=== PATIENT | female | born 1995 | race Caucasian/White ===

== ENCOUNTER → 2023-06-30 08:32 | Outpatient (BNVA) | payer OTHER, SELFPAY | PROVIDERS: PCP Physician Assistant Medical; Visit Provider Physician Assistant Surgical ==

== ENCOUNTER → 2023-07-15 13:58 | Outpatient (BNVA) | payer OTHER, SELFPAY | PROVIDERS: PCP Physician Assistant Medical; Visit Provider Physician Assistant Medical | DX: S80.01XA Contusion of right knee, initial encounter (principal); S80.211A Abrasion, right knee, initial encounter; S83.91XA Sprain of unspecified site of right knee, initial encounter; W01.0XXA Fall on same level from slipping, tripping and stumbling without subsequent striking against object, initial encounter | CPT/HCPCS: 99203 ==

== ENCOUNTER → 2023-07-19 11:09 | Outpatient (BNVA) | payer OTHER, SELFPAY | PROVIDERS: PCP Physician Assistant Medical; Visit Provider Physician Assistant Medical | DX: S80.01XA Contusion of right knee, initial encounter (principal); S80.211A Abrasion, right knee, initial encounter; S83.91XA Sprain of unspecified site of right knee, initial encounter; X50.1XXA Overexertion from prolonged static or awkward postures, initial encounter | CPT/HCPCS: 99213 ==

== ENCOUNTER → 2023-08-03 09:48 | Outpatient (BNVA) | payer OTHER, SELFPAY | PROVIDERS: PCP Physician Assistant Medical; Visit Provider Physician Assistant Medical | DX: S80.01XA Contusion of right knee, initial encounter (principal); W01.0XXD Fall on same level from slipping, tripping and stumbling without subsequent striking against object, subsequent encounter | CPT/HCPCS: 99213 ==

== ENCOUNTER 2023-08-09 14:44 | Outpatient (AMB) | payer OTHER, SELFPAY ==
--- NOTE | 2023-08-09 13:04 | MHC.OFFVISWM ---
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 She heard about the program from her PCP. Her goal is to lose weight and achieve a healthy lifestyle as well as to improve possible sleep apnea. She was referred to sleep medicine by her PCP office in June and has not yet heard. She has headaches in the morning and she has been told she snores. She has daytime fatigue and sleepiness. She reports first being concerned about her weight for the last several years, highest weight to date was 247.4. Current weight is 247.4 pounds with a BMI of 46.7. She has tried multiple methods of weight loss including fad diets without permanent results. She lives with her BF and son. 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 She has had a recent knee injury and had decreased exercise in the last several weeks. She wakes at:?6 am, and goes to bed at?10 pm. Dinner is at 6 pm. Breakfast: skip AM snack: skip Lunch: chicken salad, crackers, oatmeal, HB eggs, leftovers PM snack: skip Dinner: restaurant food or rice and red meat, potatoes After dinner: ice cream, oreos, chips, cookies Other snacks: as above Liquids: 80 oz water, no soda, no juice Alcohol/marijuana/tobacco intake: 3-4 drinks 1-2 x per month (rum and coke), no cannabis, no tobacco Exercise: 3-4 x per week (none in 5 weeks), home fitness, gym membership PF. GERD score: 10 DOTTY score: 5 ESS score: 12 QOL score: 59 PFSH Surgical History No history of previous surgery Family History Mother Lupus Father High cholesterol Hypertension Social History Alcohol intake: current Alcohol intake frequency: holidays/special occasions only Patient Tobacco Use Status: Never used Tobacco Telehealth Telehealth Telehealth Platform: Telephone Location of provider rendering services: practice address Location of patient: address on file Patient Identification confirmed using: Name, : Yes Telehealth method: voice only Patient verbally consented to treatment: Yes Patient verbally consented to billing insurance company: Yes Patient informed of any privacy concerns related to visit: Yes Minutes spent on Phone/Video with Pt.: 35 Assessment & Plan Assessment & Plan (1) Morbid obesity: Code(s): E66.01 - Morbid (severe) obesity due to excess calories Category: Medical Plan: This is a?27 yo female who will start our MWL program.? She states that she does have headaches in the morning and snores. ESS 12, referred to sleep Medicine by her primary care physician through the [facility]. She has not yet heard back from them and will follow-up with us for a possible referral at [facility] if she wishes. ? Adequate sleep of 7-8 hours per night discussed awakening at 6 am and going to bed at 11pm. We will try to go to bed at 22:00 ? You have already purchased the [employer] body composition scale so be sure and check weight weekly. The best time to do this is first thing in the morning after going to the bathroom. 1. Nutritional counseling: Be sure to careful read the number of scoops per shake Start with 3 Premier Protein shakes, (1 scoop in 8-10 oz unsweetened almond milk) First shake at 7am-9am, Second shake at 11am-1pm 1 protein bar ([place] [employer]) at 3pm-5pm. Dinner at 6pm (9 forks of protein and 9 forks of salad/vegetables). Meal to include lean meat (beef, fish, pork, turkey, chicken), cooked vegetables or a salad with olive oil and/or fruits (berries, pears, apples, kiwi). Avoid salt, breads, potatoes, rice, pasta, desserts. Another shake with 1 scoop in 8 oz unsweetened almond milk at 8pm-10pm. Try to drink 64 oz of water daily and avoid soda and juices. ?2. Each shake would be drunk slowly, like coffee in a period of 2 hours. ?3. Cut each bar in 4 pieces and eat each piece in 30 min ?to make each bar last 2 hours. ?4. I emphasized the importance of measuring accurately the food portion and measure it carefully when serving the food on the plate ?5. The meal portions include 9 full-size forks of meat and 9 full-size forks of salad. You always eat the meat portion but you can replace up to half of the forks of salad/vegetables with rice, potatoes or pasta, or a fruit ?if you like. The less you do it the better weight loss will be. ?6. One full-size fork is what can be scooped on the fork without falling aside and not what can be bit with the fork. Use regular forks like those you find in a typical restaurant. ?7.? Please send me weight measurements as soon as possible and then once a week. Always include your diet and exercise plan. Alternatively come weekly at the office for weight checks and send me the measurements. ?8. Exercise counseling: Once you are cleared by your knee doctor and PT, stretch before and after each exercise session to avoid injury. Please continue to go to [facility] gym near your home. Ask the mine engineering manager or one of the trainers how to use the machines if you are unfamiliar with them. Start elliptical with a resistance of 2. Increase resistance by 1 every 3 min to your most comfortable resistance with a max resistance of 8. Reduce the resistance by 1 every 3 minutes back down to 2 and repeat cycles for 300 calories. Alternatively, start treadmill with a speed of 3.0 and incline of 0, increasing incline by 1 every 3 minutes to the highest comfortable level (max 6 for now) then decrease in the same fashion. Repeat process to a goal of 300 calories. Goal of 2000 calories burned or more weekly. You may also consider use of the stationary bike. The easiest would be to chose the fat-burn or interval training program on the machine and do this until you reach the 300 calorie goal. Alternatively, you can manually adjust the resistance in a similar fashion as mentioned above, (resistance of 2-8 with a goal speed of 12 mph). Tracking calories is essential. 9. Alternatively start walking outside daily, tracking calories with a goal of 300 calories per day, daily. You can download the petty [place] which can track your time, distance and calories while walking outside. You press start in the petty when you start and then stop when you are finished. 10.? It is important to text weekly with your weight measurement from your scale as well if you are having any problems. 11. Please follow the diet plan exactly, without any change. If you do not like something about the plan or you feel hungry, you need to communicate with me so I can help you revise the plan. You should not change the plan yourself. Text me at [phone] 12. Goal is to lose at least 8-10 pounds in the first month Patient is morbidly obese and is not considered stable at this time.?I spent a total of 70 minutes reviewing/updating records, examining the patient and counseling the patient on weight management as detailed above.
[2023-08-09 13:25] VITALS: BMI 46.7
== END 2023-08-09 15:49 | disposition home or self-care (01) ==
LOC: HO.HBS 14:44
PROVIDERS: PCP Physician Assistant Medical; Visit Provider Physician Assistant Surgical
DX: E66.01 Morbid (severe) obesity due to excess calories (principal)
CPT/HCPCS: 99203

== ENCOUNTER → 2023-08-09 14:44 | Outpatient (BNVA) | payer OTHER, SELFPAY | PROVIDERS: PCP Physician Assistant Medical; Visit Provider Physician Assistant Surgical ==

== ENCOUNTER → 2023-08-17 14:01 | Outpatient (BNVA) | payer OTHER, SELFPAY | PROVIDERS: PCP Physician Assistant Medical; Visit Provider Physician Assistant Medical | DX: S80.01XD Contusion of right knee, subsequent encounter (principal); M23.91 Unspecified internal derangement of right knee | CPT/HCPCS: 99213 ==

== ENCOUNTER 2023-09-13 15:13 | Outpatient (AMB) | payer OTHER, SELFPAY ==
--- NOTE | 2023-09-13 09:23 | MHC.OFFVISWM ---
VS Expanded 09/13/23 09:24 Height 5 ft 1 in Weight 243 lb 6.4 oz BMI 46.0 Body Fat % 60.9 Intake Visit Reasons: (TV) F/U MWL Allergies No Known Allergies Allergy (Verified 06/30/23 08:48) Medication List - Last Reconciled 09/13/23 by NEPTALI Ulrich etonogestrel-ethinyl estradiol 0.12-0.015 mg/24 hr (NuvaRing) 1 vag ring vaginal Q4W HPI Comments Details: Patient is a 27-year-old female who returns to the office in follow-up. She was seen for the 1st time for medical weight loss clinic on 07/23/2023, weight at that time was 247.4 pounds with a BMI of 46.7. Weight today is 243.4 lb with a BMI of 46. She has lost 4 lb or 1.6 % total body weight loss. She states she has been busy, PT 2-3 x per week and is now cleared to exercise as able. Vacation happened as well since last visit. She will be on a reduced schedule during the summer for school. She changed to Ghost protein powder without communication (25 gm per 1 scoop). She had trouble finding the premier protein. She is using 1 scoop per shake 3 shakes per day. meal plan: 3 Premier Protein shakes, (1 scoop in 8-10 oz unsweetened almond milk) First shake at 7am-9am, Second shake at 11am-1pm 1 protein bar ([employer])-12 gm protein at 3pm-5pm. Dinner at 6pm (9 forks of protein and 9 forks of salad/vegetables). Another shake with 1 scoop in 8 oz unsweetened almond milk at 8pm-10pm. Try to drink 64-80 oz of water daily. exercise plan: started tennis will resume jaun T 20 walking [facility] Surgical History No history of previous surgery Family History Mother Lupus Father High cholesterol Hypertension Social History Alcohol intake: current Alcohol intake frequency: holidays/special occasions only Patient Tobacco Use Status: Never used Tobacco Physical Exam Vital Signs: BMI result Body Mass Index 46.0 Telehealth Telehealth Telehealth Platform: Telephone Location of provider rendering services: practice address Location of patient: address on file Patient Identification confirmed using: Name, : Yes Telehealth method: voice only Patient verbally consented to treatment: Yes Patient verbally consented to billing insurance company: Yes Patient informed of any privacy concerns related to visit: Yes Minutes spent on Phone/Video with Pt.: 15 Assessment & Plan Assessment & Plan (1) Morbid obesity: Code(s): E66.01 - Morbid (severe) obesity due to excess calories Category: Medical Plan: Patient change her meal plan without guidance. She is now using ghost protein powder (25 g of protein per 1 scoop) we will change meal plan accordingly: 3 Protein shakes, (1/2 scoop in 8-10 oz unsweetened almond milk) using ghost protein powder First shake at 7am-9am, Second shake at 11am-1pm 1 protein bar ([employer])-12 gm protein at 3pm-5pm. Dinner at 6pm (9 forks of protein and 9 forks of salad/vegetables). Another shake with 1/2 scoop in 8 oz unsweetened almond milk at 8pm-10pm. Discussed the importance of exercise. Now that she has recovered from her rehab, she is now going to hit the gym and goal is burning 300 calories per day. We will have her follow-up in the office in approximately 1 month with the understanding that she will continue to text weekly and with any questions or concerns
[2023-09-13 09:24] VITALS: BMI 46.0
== END 2023-09-13 15:38 | disposition home or self-care (01) ==
PROVIDERS: PCP Physician Assistant Medical; Visit Provider Physician Assistant Surgical
DX: E66.01 Morbid (severe) obesity due to excess calories (principal)
CPT/HCPCS: 99213

== ENCOUNTER → 2023-09-13 15:13 | Outpatient (BNVA) | payer OTHER, SELFPAY | PROVIDERS: PCP Physician Assistant Medical; Visit Provider Physician Assistant Surgical | DX: E66.01 Morbid (severe) obesity due to excess calories (principal) ==

== ENCOUNTER 2023-10-22 09:00 | Outpatient (AMB) | payer OTHER, SELFPAY ==
--- NOTE | 2023-10-22 09:00 | A.OFFVIS_ITS ---
VS Expanded 10/22/23 09:01 Height 5 ft 1 in Weight 241 lb 3.2 oz BMI 45.6 Body Fat % 60.2 Intake Visit Reasons: (TV) F/U MWL Allergies No Known Allergies Allergy (Verified 06/30/23 08:48) Medication List - Last Reconciled 10/22/23 by NEPTALI Ulrich etonogestrel-ethinyl estradiol 0.12-0.015 mg/24 hr (NuvaRing) 1 vag ring vaginal Q4W HPI Comments Details: Patient is a 27-year-old female who returns to the office in follow-up. She was seen for the 1st time for medical weight loss clinic on 07/23/2023, weight at that time was 247.4 pounds with a BMI of 46.7. Weight today is 241.2 lb with a BMI of 45.6. She has lost 6.2 lb or 2.5 % total body weight loss. She states she has been busy, PT 2-3 x per week and is now cleared to exercise as able. Vacation happened as well since last visit. She will be on a reduced schedule during the summer for school. SHe has increased stress recently. She has reactive PTSD and she has periods of despair. She changed to Ghost protein powder without communication (25 gm per 1 scoop). She has been intermittently following the meal plan. She had an emergency with her friend in [place]. SHe didn't follow the plan for a week. She hasn't been using the third shake and hasn't been working out due to knee pain. meal plan: 3 Protein shakes, (1/2 scoop in 8-10 oz unsweetened almond milk) using ghost protein powder First shake at 7am-9am, Second shake at 11am-1pm 1 protein bar ([employer])-12 gm protein at 3pm-5pm. Dinner at 6pm (9 forks of protein and 9 forks of salad/vegetables). Another shake with 1/2 scoop in 8 oz unsweetened almond milk at 8pm-10pm. Try to drink 64-80 oz of water daily. exercise plan: nothing in the last several weeks. [facility] Surgical History No history of previous surgery Family History Mother Lupus Father High cholesterol Hypertension Social History Alcohol intake: current Alcohol intake frequency: holidays/special occasions only Patient Tobacco Use Status: Never used Tobacco Telehealth Telehealth Telehealth Platform: Telephone Location of provider rendering services: practice address Location of patient: address on file Patient Identification confirmed using: Name, : Yes Telehealth method: voice only Patient verbally consented to treatment: Yes Patient verbally consented to billing insurance company: Yes Patient informed of any privacy concerns related to visit: Yes Minutes spent on Phone/Video with Pt.: 15 Assessment & Plan Assessment & Plan (1) Morbid obesity: Code(s): E66.01 - Morbid (severe) obesity due to excess calories Category: Medical Plan: Patient has made some progress. She has gained a significant understanding but had setbacks due to underlying mental stress and arthritis in her knee. She is going to continue to apply the principal she has learned and hopes to lose another 10 lb in the next month. She certainly may call the office at any time if she wishes to pursue a surgical weight loss intervention. She may text me in the future should she have any further questions.
[2023-10-22 09:01] VITALS: BMI 45.6
== END 2023-10-22 09:30 | disposition home or self-care (01) ==
LOC: HO.HBS 09:43
PROVIDERS: PCP Physician Assistant Medical; Visit Provider Physician Assistant Surgical
DX: E66.01 Morbid (severe) obesity due to excess calories (principal)
CPT/HCPCS: 99213

== ENCOUNTER → 2023-10-22 09:00 | Outpatient (BNVA) | payer OTHER, SELFPAY | PROVIDERS: PCP Physician Assistant Medical; Visit Provider Physician Assistant Surgical | DX: E66.01 Morbid (severe) obesity due to excess calories (principal) ==

== ENCOUNTER → 2024-06-09 12:47 | Outpatient (BNVA) | payer OTHER, SELFPAY | PROVIDERS: PCP Physician Assistant Medical; Visit Provider Physician Assistant Medical | DX: S83.8X1A Sprain of other specified parts of right knee, initial encounter (principal); M23.8X1 Other internal derangements of right knee; X50.1XXA Overexertion from prolonged static or awkward postures, initial encounter | CPT/HCPCS: 73564; 99203 ==

== ENCOUNTER → 2024-06-13 09:47 | Outpatient (BNVA) | payer OTHER, SELFPAY | PROVIDERS: PCP Physician Assistant Medical; Visit Provider Physician Assistant Medical | DX: M23.8X1 Other internal derangements of right knee (principal) | CPT/HCPCS: 99213 ==

== ENCOUNTER → 2024-06-23 13:08 | Outpatient (BNVA) | payer OTHER, SELFPAY | PROVIDERS: PCP Physician Assistant Medical; Visit Provider Physician Assistant Medical | DX: M23.91 Unspecified internal derangement of right knee (principal) | CPT/HCPCS: 99213 ==

== ENCOUNTER 2024-07-06 20:00 | Outpatient (REF) | payer OTHER, SELFPAY ==
--- NOTE | ~2024-07-06 | MR_ITS ---
EXAMINATION: MRI RIGHT KNEE WITHOUT CONTRAST HISTORY: DERANGEMENT, HYPEREXTENSION, MENISCAL COMPARISON: Correlation is made with plain films of the right knee dated 06/01/2024. TECHNIQUE: Coronal T1 and fat-suppressed proton density, sagittal proton density and fat-suppressed proton density, and axial fat suppressed T2 weighted MR images of the right knee were obtained. FINDINGS: Bone marrow: Bone marrow signal intensity is normal. Joint effusion: There is no joint effusion. Rosario's cyst: There is no Rosario's cyst. Articular cartilage: Intact Muscles/soft tissues: The visualized muscles demonstrate normal signal intensity. Anterior cruciate ligament: Intact Posterior cruciate ligament: Intact Medial collateral ligament: Intact Lateral collateral ligament: Intact Medial meniscus: Intact Lateral meniscus: Intact Flexor mechanism: The popliteus, gastrocnemius, and hamstring tendons are intact. Quadriceps tendon: Intact Patellar tendon: Intact Patellar retinacula: Intact MR/MR knee RT wo con IMPRESSION: Unremarkable MRI of the right knee. Electronically signed by: Teo Crow MD 07/07/2024 07:23 AM EDT
== END 2024-07-06 20:01 | disposition home or self-care (01) ==
LOC: HO.MRI 20:00
PROVIDERS: Visit Provider Internal Medicine
DX: M25.561 Pain in right knee (principal)
CPT/HCPCS: 73721

== ENCOUNTER → 2024-07-06 20:00 | Outpatient (BNV) | payer OTHER, SELFPAY | PROVIDERS: Visit Provider Radiology Diagnostic Radiology | DX: M23.91 Unspecified internal derangement of right knee (principal) | CPT/HCPCS: 73721 ==

== ENCOUNTER → 2024-07-11 10:01 | Outpatient (BNVA) | payer OTHER, SELFPAY | PROVIDERS: Visit Provider Physician Assistant Medical | DX: M23.91 Unspecified internal derangement of right knee (principal) | CPT/HCPCS: 99213 ==

== ENCOUNTER 2024-07-13 13:48 | Outpatient (AMB) | payer OTHER, SELFPAY ==
--- NOTE | 2024-07-13 13:57 | MHC.OFFVIS ---
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 Patient reports her first injury was on 08/04/23 she was going after her student that was trying to run out the building, the student tripped and then she also tripped over the student trying not to injure the student. Second injury was when she was sitting on the floor with her class and she got up she hyperextend her knee which causes her a lot of pain. She states that her pain is on the medial aspect of the knee. Patient has noticed her knee going numb when she is driving. She states her pain is worse using the stairs and standing from a sitting position. She mentions that she has tried a DOTTY bandage to wrap her knee, Tylenol and warm compresses. Hx of going to [facility] physical therapy. 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 The initial injury occurred in July of the previous year due to a fall incurred while trying to prevent a child from runing out of the building, resulting in a direct impact on the right knee. Physical therapy ensued, resulting in improvement for short term. A second injury on June 08 resulted in additional pain and functional impairment when she got up from sitting on the floor. She is unsure of the exact mechanism of injury. Current symptoms include lingering deep medial knee discomfort, episodic knee buckling, and recent neurogenic symptoms such as tingling and numbness, particularly during prolonged sitting or driving. The patient denies consistent lower back discomfort but reports some episodes of back pain. [facility] Surgical History No history of previous surgery Family History Mother Lupus Father High cholesterol Hypertension Social History (Updated 07/13/24 @ 14:05 by Alexis Chavis) Alcohol intake: current Alcohol intake frequency: holidays/special occasions only Patient Tobacco Use Status: Never used Tobacco Current occupational status: employed Current occupation: website/blog editor Review of Systems Const All systems reviewed & are unremarkable except as noted in HPI and below Physical Exam Const General: cooperative, healthy appearing and no acute distress Resp Effort & Inspection: normal respiratory effort and able to speak in complete sentences Cardio Rate: regular rate Peripheral pulses: Peripheral pulses 2+ throughout Skin Lesions: no lesions Rashes: no rashes Extrem Other: Right knee: Normal to inspection. No ecchymosis, erythema, or joint effusion. Tenderness to palpation medial joint line. Full knee extension and flexion. Negative Quirino's. Negative anterior drawer. Able to perform straight leg raise. 5/5 strength with resisted hip flexion, knee extension, and knee flexion. Assessment & Plan Assessment & Plan (1) Derangement of right knee: Comment: (initial DOI 08/04/23; reinjured 06/08/24; MRI done 07/06/24 normal) Code(s): M23.91 - Unspecified internal derangement of right knee Category: Medical (2) Lumbar back pain with radiculopathy affecting lower extremity: Code(s): M54.16 - Radiculopathy, lumbar region Category: Medical Plan The patient will continue with physical therapy to maintain strength and flexibility in the knee while awaiting further evaluation from a physiatry specialist, which is crucial for assessing the potential neurogenic source of her symptoms. This further evaluation will help determine if referral or additional interventions are necessary to mitigate the sensations and functional limitations reported by the patient in the setting of a negative knee MRI. Work restrictions will continue to ensure she avoids exacerbating the condition, and ongoing monitoring will remain essential in managing her plan effectively. MRI of the right knee obtained on 07/06/2024: IMPRESSION: Unremarkable MRI of the right knee. X-rays of the right knee which were obtained on 06/09/2024 were reviewed by me, Josefina Tyler PA-C, revealed of the right knee are negative for any acute fracture dislocation. Coding Level of Care Code New Pt Level 3 (05983) Diagnoses Derangement of right knee M23.91 Lumbar back pain with radiculopathy affecting lower extremity M54.16
--- OUTSIDE RECORDS SUMMARY | 2024-07-13 15:10 | XMS_ITS | Encounter Summary ---
Author Organization [facility] Address [address] [place] [id number] Phone Care Team Providers Care Acid Tank Liner Name Role Phone Elaine Henriquez MD Primary Care Provider Encounter Details Date Type Department Care Team (Late st Contact Info) Description 09/02/2011 Document[place] [facility] [place] [address] [place] [address] Family Medicine, Physician [address], [place] [phone] Social History Tobacco Use Types Packs/Day Years Used Date Smoking Tobacco: Never Assessed Comments Unknown Sex and Gender Information Value Date Recorded Sex Assigned at Not on file Legal Sex Female 5:13 PM EDT Gender Identity Not on file Sexual Orientation Not on file documented as of this encounter Plan of Treatment Not on file documented as of this encounter Visit Diagnoses Not on filedocumented in this encounter Care Teams Acid Tank Liner Relationship Specialty Start Date End Date Elaine Henriquez MD [address] [place] [address] [place] [address] PCP - General 11/20/16 09/17/22 documented as of this encounter
--- OUTSIDE RECORDS SUMMARY | 2024-07-13 15:10 | XMS_ITS | Encounter Summary ---
Author Organization [facility] Address [address] [place] [phone] Phone Care Team Providers Care Master Black Belt Name Role Phone Elaine Henriquez MD Primary Care Provider Encounter Details Date Type Department Care Team (Late st Contact Info) Description 11/06/2011 [place] [facility] [place] [address] [place] [address] Family Medicine, Physician [address] [place], [place] [phone] Social History Tobacco Use Types Packs/Day Years [...] on filedocumented in this encounter Care Teams Master Black Belt Relationship Specialty Start Date End Date Elaine Henriquez MD [address] [place] [address] [place] [id number] PCP - General 11/20/16 09/17/22 documented as of this encounter
--- OUTSIDE RECORDS SUMMARY | 2024-07-13 15:10 | XMS_ITS | Clinical Summary ---
Author Organization [facility] Address [address] [place] [phone] Phone Care Team Providers Care Assembling Motor Builder Name Role Phone Unavailable Primary Care Provider Unavailabl e Immunizations Immunization Administration Dates Next Due DTaP 5 08/04/2000, 8,05/19/1996,03/17,01/17/1996 H1N1 02/15/2009 HPV, Quadrivalent 01/20/2008,09/08/2007,07/07/19 08 Hep A, Adult 01/25/2015 Hep A, ped/adol 12/07/2013 Hep B, ped/adol 05/19/1996,01/17/1996,1995 Hib (PRP-T) 01/16/1997, 7,03/17/1996,01/16 IPV 08/04/2000 Influenza Split 01/06/2012,02/10/2011,01/06/2010 Influenza, injectable, quadr ivalent, preservative free 02/03/2016,01/25/2015,12/21/2013 Influenza, intranasal, quadrivalent 12/23/2012 MMR 08/04/2000,01/16/1997 Meningococcal Conj (Menactra) MCV4P 04/01/2015,0 07/07/2007 OPV 05/19/1996,03/17/1996,01/17/1996 Td (adult) (Tenivac), 5 Lf t etanus toxoid, PF, adsorbed 04/10/2016 Tdap 07/07/2007 Varicella 07/07/2007,04/18/1997 Family History Relation Name Status Comments Brother Alive Brother: ADD Father Alive Father: Migrain es Mother Alive Mother: eczema , asthma overweight Other Family history of Lupus erythematosus, No family history of Dental caries, Family history of Obesity, Family history of Seizure disorder, Family history of Strabismus/amblyopia, Family history of Pulmonary fibrosis Sister Alive Sister: ADD/ADH D Social History Tobacco Use Types Packs/Day Years Used Date Smoking Tobacco: Never Comments:Never smoker Comments Unknown Sex and Gender Information Value Date Recorded Sex Assigned at Not on file Legal Sex Female 5:13 PM EDT Gender Identity Not on file Sexual Orientation Not on file Last Filed Vital Signs Vital Sign Reading Time Taken Comments Blood Pressure 117/69 04/10/2016 12:00 AM EST Pulse 81 04/10/2016 12:00 AM EST Temperature 36.6 ??C (97.8 ??F) 04/10/2016 12:[address] Respiratory Rate - - Oxygen Saturation 97% 04/17/2015 12:00 AM EST Inhaled Oxygen Concentration - - Weight 97.1 kg (214 lb) 04/10/2016 12:00 AM EST Height 154.9 cm (5' 1 ) 04/10/2016 12:00 AM EST Body Mass Index 40.43 04/10/2016 12:00 AM EST Plan of Treatment Health Maintenance Due Date Last Done Comments Influenza Vaccines (#1) 2023 02/03/20 16, 01/25/2015, 12/21/2013, Additional history exists COVID-19 Vaccine ( season) 2023 DTaP,Tdap,and Td Vaccines (8 - Td or Tdap) 04/10/2026 04/10/2016, 07/07/2007, 08/04/2000, Additional history exists Hepatitis B Vaccines Completed 05/19/1996, 01/17/1996, 1995 HIB Vaccines Completed 01/16/1997, 10/1996, 03/17/1996, Additional history exists IPV Vaccines Completed 08/04/2000, 10/1996, 03/17/1996, Additional history exists MMR Vaccines Completed 08/04/2000, 01/16/1997 Varicella Vaccines Completed 07/07/2007, 04/18/1997 HPV Vaccines Completed 01/20/2008, 08/11, 07/07/2007 Hepatitis A Vaccines Completed 01/25/2015, 12/08/19 14 Meningococcal Vaccine Aged Out 04/01/2015, 008 No longer eligible based on patient's age to complete this topic Men B Vaccine Aged Out No longer elig ible based on patient's age to complete this topic Pneumococcal Vaccine Aged Out No long er eligible based on patient's age to complete this topic Procedures * Due to [place] [employer] law, this organization might not be sharing sensitive test results. Procedure Name Priority Date/Time Associated Diagnosis Comments CHLAMYDIA AND GONORRHEA, AMPLIFIED Routine 04/14/2016 2:05 PM EST from Last 3 Months or Most Recently Relevant to Health Maintenance Results * Due to [place] [employer] law, this organization might not be sharing sensitive test results. * Chlamydia and Gonorrhoea, Amplified (04/14/2016 2:05 PM EST) [facility] URINE GC AMP PROBE NEGATIVE [facility] Comment: No Neisseria Gonorrhoeae RNA detected in this patient's sample (REFERENCE RANGE/NORMAL VALUE: NOT DETECTED) NOTE: This test uses commercial development manager-mediated amplification method to detect rRNA from C.Trachomatis and N.Gonorrhoeae. A negative result does not preclude infection. In the case of a negative urine result, testing of an endocervical(female) or urethral(male) specimen is recommended if there is high clinical suspicion of infection. The performance characteristics of this test have not been evaluated in children. The Aptima Combo2 assay is not intended for the evaluation of suspected sexual abuse or for other medico-legal indications. The ordering provider should assess if the patient had consensual sex without risk of sexual abuse. Consult the [facility] if needed. Contact phone number . Therapeutic failure or success cannot be determined with the Aptima Combo2 assay since nucleic acid may persist following appropriate antimicrobial therapy. The Centers for Disease Control and Prevention (CDC) recommends confirmatory retesting using culture or a different nucleic acid amplification test when positive results occur, if indicated. Testing performed or reported by [facility], a Service of [facility], [address], [place] [address] CLIA ??[id number] Camilo Palm MD, PhD, Analog Device Designer URINE CHLAMYDIA AMP PROBE NEGATIVE [facility] Comment: No Chlamydia Trachomatis RNA detected in this patient's sample (REFERENCE RANGE/NORMAL VALUE: NOT DETECTED) 04/14/2016 2:05 PM EST Narrative [facility] - 04/14/2016 2:05 PM EST URINE CHLAMYDIA GC AMP PROBE us Elaine Henriquez MD LAB MICROBIOLOGY - GENERAL O RDERABLES Final Result [facility] [address] [place] [address], [place] from Last 3 Months or Most Recently Relevant to Health Maintenance
--- OUTSIDE RECORDS SUMMARY | 2024-07-13 15:10 | XMS_ITS | Encounter Summary ---
Author Organization [facility] Address [address] [place] [phone] Phone Care Team Providers Care Internal Controls Consultant Name Role Phone Elaine Henriquez MD Primary Care Provider Encounter Details Date Type Department Care Team (Late st Contact Info) Description 06/13/2012 Documentation [facility] [address] [place] [address] Family Medicine, Physician [address] [place], [place] [id number] Social History Tobacco Use Types Packs/Day Years [...] on filedocumented in this encounter Care Teams Internal Controls Consultant Relationship Specialty Start Date End Date Elaine Henriquez MD [address] [place] [address] [place] [address] PCP - General 11/20/16 09/17/22 documented as of this encounter
--- OUTSIDE RECORDS SUMMARY | 2024-07-13 15:10 | XMS_ITS | Encounter Summary ---
Author Organization [facility] Address [address] [place] [phone] Phone Care Team Providers Care Uniform Maker Name Role Phone Elaine Henriquez MD Primary Care Provider [phone] Encounter Details Date Type Department Care Team (Late st Contact Info) Description 04/09/2015 Documentation [facility] [facility] [address] [place] [address] Family Medicine, Physician [address], [place] [id number] Social History Tobacco Use Types Packs/Day Years [...] on filedocumented in this encounter Care Teams Uniform Maker Relationship Specialty Start Date End Date Elaine Henriquez MD [address] [place] [address] [place] [address] PCP - General 11/20/16 09/17/22 documented as of this encounter
--- OUTSIDE RECORDS SUMMARY | 2024-07-13 15:11 | XMS_ITS | Encounter Summary ---
Author Organization [employer] Address [address] [place] [address] Care Team Providers Care Golf Course Laborer Name Role Phone Erika Madrigal MD Primary Care Pr ovider Encounter Details Date Type Department Care Team (Late st Contact Info) Description 06/16/2024 Telephone Gastroenterology [facility] [address] [phone] Shameka Hidalgo [place] Social History Tobacco Use Types Packs/Day Years Used Date Smoking Tobacco: Never Smokeless Tobacco: Never Alcohol Use Standard Drinks/Week Comments Yes 0 (1 standard drink = 0.6 oz pur e alcohol) Comments Unknown Sex and Gender Information Value Date Recorded Sex Assigned at Female 05/11/2024 4:07 PM EST Legal Sex Female 4:48 AM EST Gender Identity Female 05/11/2024 4:07 PM EST Sexual Orientation Straight 05/11/2024 4: 07 PM EST documented as of this encounter Plan of Treatment Upcoming Encounters Date Type Department Care Team (Late st Contact Info) Description 08/10/2024 8:30 AM EDT Office Visit Gastroenterology [facility] [address] [facility] [address] [place] [phone] Arpita Miller PA [address] [facility] [address] [address] 09/11/2024 8:00 AM EDT Office Visit [address] [place] [address] Erika Madrigal MD [address] [place] [address] documented as of this encounter Visit Diagnoses Not on filedocumented in this encounter Care Teams Golf Course Laborer Relationship Specialty Start Date End Date Erika Madrigal MD [address] [facility], [place] PCP - General Internal Medicine 01/14/22 documented as of this encounter
--- OUTSIDE RECORDS SUMMARY | 2024-07-13 15:11 | XMS_ITS | Clinical Summary ---
Author Organization [facility] Address [address] [place] [address] Phone Care Team Providers [employer] Consultant Name Role Phone Erika Madrigal MD Primary Care Pr ovider Allergies Active Allergy Reactions Criticality Noted Date Comments Nickel Rash 05/02/2014 Medications etonogestreL-et hinyl estradioL (NUVARING) 0.12-0.015 mg/24 hr vaginal ring INSERT 1 RING VAGINALLY DIRECTED. REMOVE AFTER 3 WEEKS & WAIT 7 DAYS BEFORE INSERTING A NEW RING 4 Active omeprazole (PriLOSEC) [address] capsule Take 1 capsule (40 mg total) by mouth 1 (one) time each day. for 14 days 5 Active sucralfate (CARAFATE) 1 gram tablet Take 1 tablet (1 g total) by mouth 2 (two) times a day before meals. 60 tablet 1 5 Active Active Problems Problem Noted Date Diagnosed Date Morbid obesity with BMI of 45.0-49.9, adult 12/0 06/2023 Hypertriglyceridemia 08/12/2022 Leukocytosis 08/12/2022 Fatty liver 02/02/2022 Meniere disease 11/07/2020 Overview (03/14/2024): Last Assessment & Plan: [facility] PTSD (post-traumatic stress disorder) 11/07/2020 Menorrhagia 07/04/2014 Overview (03/14/2024): Nexplanon placed 02/2014 Encounters Date Type Department Care Team Description 06/16/2024 Telephone Gastroenterology [facility] [address] [place] [phone] Shameka Hidalgo MA 06/09/2024 2:55 PM EST Lab Draw Station - [address] [place] [address] Epigastric abdominal pain 05/21/2024 8:25 AM EST - 05/21/2024 11:59 PM EST Hospital Encounter [facility] MRI [address] [place] [address] Abnormal ultrasound Discharge Disposition: Home or Self Care 05/15/2024 9:20 AM EST - 05/15/2024 11:59 PM EST Hospital Encounter [facility] Ultrasound [address] [place] [phone] Epigastric abdominal pain Discharge Disposition: Home or Self Care 05/11/2024 2:05 PM EST Lab Draw Station - [address] [place] [address] Epigastric abdominal pain 05/11/2024 1:20 PM EST Office Visit Gastroenterology [facility] [address] [place] [phone] Arpita Miller PA Epigastric abdominal pain (Primary Dx); Nausea; Diarrhea, unspecified type 05/05/2024 Telephone Gastroenterology [facility] [address] [phone] Arpita Miller PA Provider Call Back from Last 3 Months Immunizations Name Administration Dates Next Due DTaP (Infanrix) 6wks to less than 7yo ,04/18/1997,05/19/1996,03/17,01/17/1996 [id number] (Pentacel) 2mo to less than 5yo 01/16/1997,05/19/1996,03/17/1996,01/16 HPV, Quadrivalent 01/20/2008,09/08/2007,07/07/19 08 Hepatitis A Adult (Havrix; V aqta) 19yo and older 01/25/2015 Hepatitis A Pediatric (Havri x; Vaqta) 12mo to less than 19yo 12/07/2013 Hepatitis B Pediatric (Enger ix B; Recombivax HB) to less than 20 yo 05/19/1996,01/17/1996,1995 IPV Inactivated polio (Ipol) 6wks and older 08/04/2000,05/19/1996,03/17/1996,01/16 Influenza Quadravalent, MDCK , 0.5ml, preservative free (Flucelvax) 6mo and older 01/13/2019,03/15/2018 Influenza Quadravalent, MDCK , 0.5ml, with preservative (Flucelvax) 6mo and older 01/20/2017 Influenza trivalent, 0.5mL, preservative free (Fluarix; FluLaval; Fluzone) ages 6mo and older (Afluria) 3 years and older 02/03/2016,01/25/2015 MMR, measles mumps and rubel la Live (Priorix; M-M-R II) 12mo and older 08/04/2000,01/16/1997 Meningococcal MCV4P 04/01/2015,07/07/2007,2004 RiffTrax SARS-CoV-2 COVID-19, mRNA, LNP-S, preservative free 04/03/2021 Td Tetanus diptheria (Tdvax) 7yo and older 04/10/2016 Tdap Tetanus diptheria acell ular pertussis (Boostrix; Adacel) 7yo and older 02/25/2022,01/20/2017,07/07/2007 Varicella live (Varivax) 12m o and older 07/07/2007,04/18/1997 Surgical History Surgery Date Site/Laterality Comments OTHER SURGICAL HISTORY PROCEDURE: DENIES PREVIOUS SURGERY Medical History Medical History Date Comments Obesity DX:Obesity Family History Medical History Relation Name Comments Other: tetralogy of fallot Brother x 2 A DHD Hypertension Father MARJAN Other: pulmonary fibrosis Maternal Grandmother pulmonary HTN Other: Lupus Mother Diabetes Paternal Grandmother Other: MARJAN Sister x 1 Breast cancer Neg Hx Relation Name Status Comments Brother x 2 Alive Father Alive Maternal Grandfather Alive Maternal Grandmother Mother Alive Paternal Grandfather unknown Other Paternal Grandmother Alive Sister x 1 Alive Social History Tobacco Use Types Packs/Day Years [...] Orientation Straight 05/11/2024 4: 07 PM EST Obstetrics History Last Filed Vital Signs Vital Sign Reading Time Taken Comments Blood Pressure 114/68 05/11/2024 1:23 PM EST Pulse 67 02/08/2024 8:49 AM EDT Temperature - - Respiratory Rate - - Oxygen Saturation - - Inhaled Oxygen Concentration - - Weight 113 kg (250 lb) 05/21/2024 9:01 AM EST Height 154.9 cm (5' 1 ) 05/11/2024 1:23 PM EST Body Mass Index 47.24 05/11/2024 1:23 PM EST Plan of Treatment Upcoming Encounters Date Type Department Care Team (Late st Contact Info) Description 08/10/2024 8:30 AM EDT Office Visit Gastroenterology - [place] [address] [facility] [address] [place] [phone] Arpita Miller PA [address] [place] [address] 09/11/2024 8:00 AM EDT Office Visit Adult Medicine [address] [phone] Erika Madrigal MD [address] [place] [phone] Health Maintenance Due Date Last Done Comments Pneumococcal Vaccine: Pediatrics (0 to 5 Years) and At-Risk Patients (6 to 64 Years) (1 of 2 - PCV) 11/15/2014 Depression Screening 03/21/2022 Social Influencers of Health Screening 03/21/2022 COVID-19 Vaccine ( season) 2023 04/03/2021, 06/13/2020, 05/22/2020 Cervical Cancer Screening: Pap Smear 02/07/2027 02/08/2024, 02/08/2024, 11/28/2020, Additional history exists Cholesterol Screening (Lipid Panel) 08/11/2027 08/10/2022 DTaP,Tdap,and Td Vaccines (10 - Td or Tdap) 02/26/2032 02/25/2022, 01/20/2017, 04/10/2016, Additional history exists Hepatitis B Vaccines Completed 05/19/1996, 01/17/1996, 1995 HIB Vaccines Completed 01/16/1997, 10/1996, 05/19/1996, Additional history exists IPV Vaccines Completed 08/04/2000, 10/1996, 05/19/1996, Additional history exists MMR Vaccines Completed 08/04/2000, 01/16/1997 Varicella Vaccines Completed 07/07/2007, 04/18/1997 HPV Vaccines Completed 01/20/2008, 08/11, 07/07/2007 Hepatitis A Vaccines Completed 01/25/2015, 12/08/19 14 Meningococcal ACWY Vaccine Aged Out 04/01, 07/07/2007, 04/01/2005 No longer eligible based on patient's age to complete this topic Hepatitis C Screening Completed 11/28/2020 HIV Screening Completed 08/10/2022 Influenza Vaccine Completed 01/13/2024, , 01/13/2019, Additional history exists Meningococcal B Vacine Aged Out No lo nger eligible based on patient's age to complete this topic RSV Immunization Patients Under 20 months Aged Out No longer eligible based on patient's age to complete this topic Procedures Procedure Name Priority Date/Time Associated Diagnosis Comments HELICOBACTER PYLORI BREATH TEST Routine 06/09/2024 2:56 PM EST Epigastric abdominal pain MR ABDOMEN WO AND W CONTRAST Routine 05/21/2024 9:33 AM EST Abnormal ultrasound US ABDOMEN COMPLETE Routine 05/15/2024 1 0:20 AM EST Epigastric abdominal pain CBC WITH AUTO DIFFERENTIAL Routine 05/11/2024 2:02 PM EST Epigastric abdominal pain GLIADIN ANTIBODIES, SERUM Routine 05/11/2024 2:02 PM EST Epigastric abdominal pain ENDOMYSIAL ANTIBODY, IGA Routine 05/11/2024 2:02 PM EST Epigastric abdominal pain TISSUE TRANSGLUTAMINASE, IGA Routine 05/11/2024 2:02 PM EST Epigastric abdominal pain THYROID STIMULATING HORMONE Routine 05/11/2024 2:02 PM EST Epigastric abdominal pain C-REACTIVE PROTEIN Routine 05/11/2024 2: 02 PM EST Epigastric abdominal pain SEDIMENTATION RATE Routine 05/11/2024 2: 02 PM EST Epigastric abdominal pain COMPREHENSIVE METABOLIC PANEL Routine 05/11/2024 2:02 PM EST Epigastric abdominal pain CBC AND DIFFERENTIAL Routine 05/11/2024 2:02 PM EST Epigastric abdominal pain HM HPV Routine 02/08/2024 HM HIV SCREENING Routine 08/10/2022 LIPID PANEL Routine 08/10/2022 HM HEPATITIS C SCREENING Routine 11/28/2020 from Last 3 Months or Most Recently Relevant to Health Maintenance Results * Helicobacter pylori breath test (06/09/2024 2:56 PM EST) H Pylori Breath Test Negative Negative LAB CHEMISTRY METHOD 06/10/2024 1:23 PM EST [facility] Breath Oral cavity structure / Unknown Non-blood Collection / Unknown 06/09/2024 2:56 PM EST 06/09/2024 2:56 PM EST Arpita GUNDERSON LAB BODY FLUIDS AND STOOLS OR DERABLES Final Result [facility] ([facility]) [facility] [address] [place] [address], [place] [phone] * MR Abdomen wo and w Contrast (05/21/2024 9:33 AM EST) Anatomical Region Laterality Modality Body Magnetic Resonan ce 05/22/2024 2:25 PM EST Impressions 05/22/2024 2:56 PM EST Hepatic steatosis. ??No focal liver lesions. ??No correlate for finding described on recent ultrasound. -------- FINAL REPORT -------- Dictated By: ZOE BRITT Dictated Date: 05/22/2024 14:25 ET Assigned Physician: ZOE BRITT Reviewed and Electronically Signed By: ZOE BRITT Signed Date: 05/22/2024 14:56 ET Workstation ID: [id number] Transcribed By: Self Edit Transcribed Date: 05/22/2024 14:49 ET Narrative 05/22/2024 2:56 PM EST PROCEDURE: Abdominal MRI INDICATION: Hypoechoic area on the right hepatic lobe. TECHNIQUE: Multiplanar, multisequence MRI of the abdomen without and with contrast. ??20 mL Dotarem injected intravenously without complication COMPARISON: ??Ultrasound 05/15/2024 FINDINGS: Hepatic steatosis with loss of hepatic signal on out of phase imaging. ??No focal liver lesions. ??No abnormal hepatic enhancement. Gallbladder and biliary tree are normal. Pancreas, spleen, and adrenal glands are normal. Kidneys are normal. Portal vein is patent. ??Abdominal aorta is normal in size. No retroperitoneal or mesenteric lymphadenopathy. Visualized portions of the bowel are normal. ??No ascites or fluid collection. Bones, soft tissues, and visualized intrathoracic structures are normal. Procedure Note Zoe Britt MD - 05/22/2024 PROCEDURE: Abdominal MRI INDICATION: Hypoechoic area on the right hepatic lobe. TECHNIQUE: Multiplanar, multisequence MRI of the abdomen without and withcontrast. 20 mL Dotarem injected intravenously without complication COMPARISON: Ultrasound 05/15/2024 FINDINGS: Hepatic steatosis with loss of hepatic signal on out of phase imaging. Nofocal liver lesions. No abnormal hepatic enhancement. Gallbladder and biliary tree are normal. Pancreas, spleen, and adrenal glands are normal. Kidneys are normal. Portal vein is patent. Abdominal aorta is normal in size. No retroperitoneal or mesenteric lymphadenopathy. Visualized portions of the bowel are normal. No ascites or fluidcollection. Bones, soft tissues, and visualized intrathoracic structures are normal. IMPRESSION: Hepatic steatosis. No focal liver lesions. No correlate for findingdescribed on recent ultrasound. -------- FINAL REPORT -------- Dictated By: ZOE BRITT Dictated Date: 05/22/2024 14:25 ET Assigned Physician: ZOE BRITT Reviewed and Electronically Signed By: ZOE BRITT Signed Date: 05/22/2024 14:56 ET Workstation ID: [id number] Transcribed By: Self Edit Transcribed Date: 05/22/2024 14:49 ET us Arpita GUNDERSON IMG MRI PROCEDURES Final Resu lt * US Abdomen Complete (05/15/2024 10:20 AM EST) Anatomical Region Laterality Modality Body Ultrasound 05/15/2024 4:44 PM EST Impressions 05/15/2024 5:06 PM EST 1. ??Echogenic liver parenchyma, suggestive of steatosis. 2. ??Ill-defined 2.2 x 1.8 x 2.1 cm hypoechoic area in the central right hepatic lobe. ??It is possible that this represents an area of focal fatty infiltration, but this is not definitively characterized on this study. ??It could be further characterized with multiphasic CT or preferably MRI. 3. ??4 mm gallbladder polyp, not seen on the 2021 comparison exam. -------- FINAL REPORT -------- Dictated By: Himanshu West Dictated Date: 05/15/2024 16:44 ET Assigned Physician: Himanshu West Reviewed and Electronically Signed By: Himanshu West Signed Date: 05/15/2024 17:06 ET Workstation ID: [id number] Transcribed By: Self Edit Transcribed Date: 05/15/2024 16:52 ET Narrative 05/15/2024 5:06 PM EST PROCEDURE: Ultrasound of the abdomen. HISTORY: Epigastric pain. COMPARISON: 02/02/2022. TECHNIQUE: Grayscale, color Doppler, and spectral Doppler ultrasound evaluation of the abdomen. FINDINGS: Liver: Echogenic parenchyma. ??Ill-defined hypoechoic 2.2 x 1.8 x 2.1 cm area in the central right lobe near the gallbladder fossa, not seen on the previous study. ??No focal lesion. ??Normal flow in the main portal vein. Biliary: 4 mm gallbladder polyp, not seen on previous study. ??No gallbladder wall thickening or pericholecystic fluid. ??Normal caliber biliary tree. ??Negative sonographic Trevino sign. Pancreas: Visualized portions are normal. Kidneys: Normal size. ??No focal lesion or hydronephrosis. Spleen: Normal size. ??No focal lesion. Vasculature: Visualized portions of the aorta and IVC are normal. Procedure Note Himanshu West MD - 05/15/2024 PROCEDURE: Ultrasound of the abdomen. HISTORY: Epigastric pain. COMPARISON: 02/02/2022. TECHNIQUE: Grayscale, color Doppler, and spectral Doppler ultrasoundevaluation of the abdomen. FINDINGS: Liver: Echogenic parenchyma. Ill-defined hypoechoic 2.2 x 1.8 x 2.1 cmarea in the central right lobe near the gallbladder fossa, not seen on theprevious study. No focal lesion. Normal flow in the main portal vein. Biliary: 4 mm gallbladder polyp, not seen on previous study. Nogallbladder wall thickening or pericholecystic fluid. Normal caliberbiliary tree. Negative sonographic Trevino sign. Pancreas: Visualized portions are normal. Kidneys: Normal size. No focal lesion or hydronephrosis. Spleen: Normal size. No focal lesion. Vasculature: Visualized portions of the aorta and IVC are normal. IMPRESSION: 1. Echogenic liver parenchyma, suggestive of steatosis. 2. Ill-defined 2.2 x 1.8 x 2.1 cm hypoechoic area in the central righthepatic lobe. It is possible that this represents an area of focal fattyinfiltration, but this is not definitively characterized on this study.It could be further characterized with multiphasic CT or preferably MRI. 3. 4 mm gallbladder polyp, not seen on the 2021 comparison exam. -------- FINAL REPORT -------- Dictated By: Himanshu West Dictated Date: 05/15/2024 16:44 ET Assigned Physician: Himanshu West Reviewed and Electronically Signed By: Himanshu West Signed Date: 05/15/2024 17:06 ET Workstation ID: [id number] Transcribed By: Self Edit Transcribed Date: 05/15/2024 16:52 ET Arpita GUNDERSON IMG US PROCEDURES Final Resul t * Endomysial antibody, IgA (05/11/2024 2:02 PM EST) Endomysial IgA Negative Negative 05/15/2024 11:19 AM [facility] Blood Venous blood specimen / Unknown Venipuncture / Unknown 05/11/2024 2:02 PM EST 05/11/2024 2:02 PM EST Arpita GUNDERSON LAB BLOOD ORDERABLES Final Re sult [facility] [address] [place] [address], [place] [phone] * CBC auto differential (05/11/2024 2:02 PM EST) WBC 9.7 4.8 - 10.8 K/mcL LAB HEMETOLOGY METHOD 05/11/2024 6:31 PM EST [facility] RBC 4.70 3.80 - 4.80 M/mcL LAB HEMETOLOGY METHOD 05/11/2024 6:31 PM EST [facility] Hemoglobin 13.7 11.5 - 16.0 g/dL LAB HEMETOLOGY METHOD 05/11/2024 6:31 PM [facility] Hematocrit 40.5 35.0 - 47.0 % LAB HEMETOLOGY METHOD 05/11/2024 6:31 PM [facility] MCV 85.6 79.0 - 98.0 FL LAB HEMETOLOGY METHOD 05/11/2024 6:31 PM [facility] MCH 29.0 27.0 - 32.0 pcg LAB HEMETOLOGY METHOD 05/11/2024 6:31 PM [facility] MCHC 33.8 32.0 - 37.0 g/dL LAB HEMETOLOGY METHOD 05/11/2024 6:31 PM [facility] RDW 14.0 11.0 - 15.0 % LAB HEMETOLOGY METHOD 05/11/2024 6:31 PM [facility] Platelets 330 130 - 400 K/mcL LAB HEMETOLOGY METHOD 05/11/2024 6:31 PM [facility] MPV 9.7 7.0 - 11.0 FL LAB HEMETOLOGY METHOD 05/11/2024 6:31 PM [facility] NRBC 0.0 <1.0 % LAB HEMETOLOGY METHOD 05/11/2024 6:31 PM [facility] NRBC Absolute 0.00 <0.10 K/mcL LAB HEMETOLOGY METHOD 05/11/2024 6:31 PM [facility] Neutrophils Relative 53.5 % LAB HEMETOLOGY METHOD 05/11/2024 6:31 PM [facility] Lymphocytes Relative 35.1 % LAB HEMETOLOGY METHOD 05/11/2024 6:31 PM [facility] Monocytes Relative 8.4 % LAB HEMETOLOGY METHOD 05/11/2024 6:31 PM [facility] Eosinophils Relative 2.1 % LAB HEMETOLOGY METHOD 05/11/2024 6:31 PM EST [facility] Basophils Relative 0.6 % LAB HEMETOLOGY METHOD 05/11/2024 6:31 PM EST [facility] Immature Granulocytes Relative 0.3 % LAB HEMETOLOGY METHOD 05/11/2024 6:31 PM [facility] Neutrophils Absolute 5.16 1.50 - 7.00 K/mcL LAB HEMETOLOGY METHOD 05/11/2024 6:31 PM EST [facility] Lymphocytes Absolute 3.39 1.00 - 5.00 K/mcL LAB HEMETOLOGY METHOD 05/11/2024 6:31 PM [facility] Monocytes Absolute 0.81 0.20 - 1.00 K/mcL LAB HEMETOLOGY METHOD 05/11/2024 6:31 PM [facility] Eosinophils Absolute 0.20 0.00 - 0.50 K/mcL LAB HEMETOLOGY METHOD 05/11/2024 6:31 PM EST [facility] Basophils Absolute 0.06 0.00 - 0.20 K/mcL LAB HEMETOLOGY METHOD 05/11/2024 6:31 PM EST [facility] Immature Granulocytes Absolute 0.03 0.00 - 0.03 K/mcL LAB HEMETOLOGY METHOD 05/11/2024 6:31 PM [facility] Blood Venous blood specimen / Unknown Venipuncture / Unknown 05/11/2024 2:02 PM EST 05/11/2024 2:02 PM EST us Arpita GUNDERSON LAB BLOOD ORDERABLES Final Re sult [facility] [address] [place] [address], * Gliadin antibodies, serum (05/11/2024 2:02 PM EST) Gliadin IgA 19 <20 units LAB CHEMISTRY METHOD 05/18/2024 1:16 PM EST [facility] Gliadin IgG 4 <20 units LAB CHEMISTRY METHOD 05/18/2024 1:16 PM EST [facility] Gliadin IgA Antibody Negative Negative LAB CHEMISTRY METHOD 05/18/2024 1:16 PM EST [facility] Gliadin IgG Antibody Negative Negative LAB CHEMISTRY METHOD 05/18/2024 1:16 PM EST [facility] Blood Venous blood specimen / Unknown Venipuncture / Unknown 05/11/2024 2:02 PM EST 05/11/2024 2:02 PM EST Arpita GUNDERSON LAB BLOOD ORDERABLES Final Re sult Performing Organization Address [facility]/ZIP Co de Phone Number [facility] [address] [place] [address], [place] [phone] * Tissue transglutaminase, IgA (05/11/2024 2:02 PM EST) Tissue Transglutaminase Ab, IgA Quant 2 <4 unit/mL LAB CHEMISTRY METHOD 05/18/2024 2:45 PM EST [facility] Tissue Transglutaminase Ab, IgA Negative Negative LAB CHEMISTRY METHOD 05/18/2024 2:45 PM EST [facility] Blood Venous blood specimen / Unknown Venipuncture / Unknown 05/11/2024 2:02 PM EST 05/11/2024 2:02 PM EST Arpita GUNDERSON LAB BLOOD ORDERABLES Final Re sult [facility] [address] [place] [address], [place] [phone] * Sedimentation rate (05/11/2024 2:02 PM EST) Sed Rate 7 0 - 20 mm/hr LAB HEMETOLOGY METHOD 05/11/2024 7:02 PM EST [facility] Blood Venous blood specimen / Unknown Venipuncture / Unknown 05/11/2024 2:02 PM EST 05/11/2024 2:02 PM EST Arpita GUNDERSON LAB BLOOD ORDERABLES Final Re sult Performing Organization Address City/[facility]/ZIP Co de Phone Number [facility] [address] [place] [address], [place] [phone] * (ABNORMAL) C-reactive protein (05/11/2024 2:02 PM EST) C-Reactive Protein 0.59(H) <=0.50 mg/dL LAB CHEMISTRY METHOD 05/11/2024 6:34 PM EST [facility] Blood Venous blood specimen / Unknown Venipuncture / Unknown 05/11/2024 2:02 PM EST 05/11/2024 2:02 PM EST us Arpita GUNDERSON LAB BLOOD ORDERABLES Final Re sult Performing Organization Address [facility] Co de Phone Number [facility] [address] [place] [address], [place] [phone] * Thyroid stimulating hormone (05/11/2024 2:02 PM EST) TSH 0.91 0.40 - 4.00 mcIU/mL LAB CHEMISTRY METHOD 05/11/2024 6:42 PM EST [facility] Blood Venous blood specimen / Unknown Venipuncture / Unknown 05/11/2024 2:02 PM EST 05/11/2024 2:02 PM EST Arpita GUNDERSON LAB BLOOD ORDERABLES Final Re sult Performing Organization Address City/[facility]/ZIP Co de Phone Number [facility] [address] [place] [address], [place] [phone] * Comprehensive metabolic panel (05/11/2024 2:02 PM EST) Sodium 140 133 - 145 mmol/L LAB CHEMISTRY METHOD 05/11/2024 6:34 PM [facility] Potassium 3.9 3.5 - 5.5 mmol/L LAB CHEMISTRY METHOD 05/11/2024 6:34 PM [facility] Chloride 108 96 - 110 mmol/L LAB CHEMISTRY METHOD 05/11/2024 6:34 PM [facility] CO2 24 21 - 32 mmol/L LAB CHEMISTRY METHOD 05/11/2024 6:34 PM [facility] Anion Gap 8 3 - 11 LAB CHEMISTRY METHOD 05/11/2024 6:34 PM [facility] Glucose 88 70 - 100 mg/dL LAB CHEMISTRY METHOD 05/11/2024 6:34 PM [facility] BUN 10 5 - 25 mg/dL LAB CHEMISTRY METHOD 05/11/2024 6:34 PM [facility] Creatinine 1.00 0.50 - 1.10 mg/dL LAB CHEMISTRY METHOD 05/11/2024 6:34 PM [facility] eGFR 79 >=60 mL/min/1. 73m2 LAB CHEMISTRY METHOD 05/11/2024 6:34 PM [facility] Comment:Calculation based on the??Chronic Kidney Disease Epidemiology Collaboration (CKD-EPI) equation refit??without adjustment for race. BUN/Creatinine Ratio 10.0 LAB CHEMISTRY METHOD 05/11/2024 6:34 PM [facility] Calcium 9.0 8.5 - 10.5 mg/dL LAB CHEMISTRY METHOD 05/11/2024 6:34 PM [facility] AST (SGOT) 25 10 - 42 unit/L LAB CHEMISTRY METHOD 05/11/2024 6:34 PM [facility] ALT (SGPT) 35 10 - 60 unit/L LAB CHEMISTRY METHOD 05/11/2024 6:34 PM EST [facility] Alkaline Phosphatase 80 42 - 121 unit/L LAB CHEMISTRY METHOD 05/11/2024 6:34 PM [facility] Total Protein 7.4 6.0 - 8.0 g/dL LAB CHEMISTRY METHOD 05/11/2024 6:34 PM [facility] Albumin 4.2 3.2 - 5.0 g/dL LAB CHEMISTRY METHOD 05/11/2024 6:34 PM [facility] Total Bilirubin 0.5 0.0 - 1.4 mg/dL LAB CHEMISTRY METHOD 05/11/2024 6:34 PM [facility] Blood Venous blood specimen / Unknown Venipuncture / Unknown 05/11/2024 2:02 PM EST 05/11/2024 2:02 PM EST Arpita GUNDERSON LAB BLOOD ORDERABLES Final Re sult [facility] [address] [place] [address], * Cervical Cancer Screening: HPV (02/08/2024) [facility] Cervical Cancer Screening: HPV abstracted ,negative Historical Provider HEALTH MAINTENANCE Final Result * HIV Screening (08/10/2022) [facility] HIV Screening abstracted Historical Provider HEALTH MAINTENANCE Final Result * (ABNORMAL) Lipid panel (08/10/2022) [facility] LDL/HDL Ratio 4 0 - 4 Triglycerides 270(A) 0 - 150 mg/dL Cholesterol 192 0 - 200 mg/dL HDL 50 >=40 mg/dL LDL Cholesterol 88 0 - 100 mg/dL Blood Venous blood specimen / Unknown Historical Provider LAB BLOOD ORDERABLES Jacki l Result * Hepatitis C Screening (11/28/2020) Hepatitis C Screening abstracted us Historical Provider HEALTH MAINTENANCE Final Result from Last 3 Months or Most Recently Relevant to Health Maintenance Insurance [facility] Care Teams [employer] Consultant Relationship Specialty Start Date End Date Erika Madrigal MD [address] [facility], [place] PCP - General Internal Medicine 01/14/22
--- OUTSIDE RECORDS SUMMARY | 2024-07-13 15:11 | XMS_ITS | Encounter Summary ---
Author Organization [facility] Address [address] [place] [phone] Phone Care Team Providers Care Music Typographer Name Role Phone Elaine Henriquez MD Primary Care Provider Encounter Details Date Type Department Care Team (Late st Contact Info) Description 11/26/2016 Conversion Encounter [facility] [address] [place] [address] Social History Tobacco Use Types Packs/Day Years [...] on filedocumented in this encounter Care Teams Music Typographer Relationship Specialty Start Date End Date Elanie Henriquez MD [address] [place] [id number] PCP - General 11/20/16 09/17/22 documented as of this encounter
== END 2024-07-13 14:36 | disposition home or self-care (01) ==
LOC: HO.HOS 13:48
PROVIDERS: PCP Physician Assistant Medical; Visit Provider Physician Assistant
DX: M23.91 Unspecified internal derangement of right knee (principal); M54.16 Radiculopathy, lumbar region
CPT/HCPCS: 99203

== ENCOUNTER → 2024-07-13 13:48 | Outpatient (BNVA) | payer OTHER, SELFPAY | PROVIDERS: PCP Physician Assistant Medical; Visit Provider Physician Assistant | DX: M23.91 Unspecified internal derangement of right knee (principal) | CPT/HCPCS: 99202 ==

== ENCOUNTER → 2024-07-18 09:48 | Outpatient (BNVA) | payer OTHER, SELFPAY | PROVIDERS: PCP Physician Assistant Medical; Visit Provider Physician Assistant Medical | DX: M23.91 Unspecified internal derangement of right knee (principal) | CPT/HCPCS: 99213 ==

== ENCOUNTER → 2024-08-01 12:57 | Outpatient (BNVA) | payer OTHER, SELFPAY | PROVIDERS: PCP Physician Assistant Medical; Visit Provider Physician Assistant Medical | DX: M23.8X1 Other internal derangements of right knee (principal); Z02.79 Encounter for issue of other medical certificate | CPT/HCPCS: 99213 ==

== ENCOUNTER → 2024-08-11 14:01 | Outpatient (BNVA) | payer OTHER, SELFPAY | PROVIDERS: PCP Physician Assistant Medical; Visit Provider Physician Assistant Medical | DX: M23.91 Unspecified internal derangement of right knee (principal); Z02.79 Encounter for issue of other medical certificate | CPT/HCPCS: 99213 ==